=== PATIENT | female | born 1985 | race Caucasian/White ===

== ENCOUNTER 2017-01-05 07:37 | Day surgery (SDC) | payer BC ==
[2017-01-05] MEDS ORDERED: Sodium Chloride 0.9% 10 ML Syringe FLUSH PRN (07:45)
[2017-01-05] MEDS ORDERED: Lactated Ringers 1,000 ML IV SCH (07:45)
[2017-01-05] MEDS ORDERED: Propofol 200 MG/20 ML SDV IV ONE (09:30)
--- NOTE | 2017-01-05 10:39 | OR ---
DATE OF OPERATION: 01/05/2017 SURGEON: Drake Currie MD PROCEDURE PERFORMED: Colonoscopy with random forceps biopsies. PREOPERATIVE DIAGNOSIS: Diarrhea and abdominal pain. POSTOPERATIVE DIAGNOSIS: Normal scope. INDICATIONS FOR PROCEDURE: This is a 31-year-old white female, who was referred with the above-mentioned complaints. She was offered and accepted C scope. DESCRIPTION OF PROCEDURE: After an excellent, IV sedation was administered, digital rectal exam was performed. No marked abnormality was noted. The flexible colonoscope was inserted and advanced to the cecum without difficulty. The following findings were noted. Ascending colon, unremarkable. Random biopsies were taken. Transverse colon, unremarkable. Random biopsies were taken. Descending colon, unremarkable. Random biopsies were taken. Sigmoid and rectum unremarkable. Random biopsies were taken. Colon was deflated. Scope was removed. The patient tolerated the procedure well, and was taken to recovery in good condition. /[id number] /MODL
[2017-01-05 11:40] VITALS: BP 121/78
== END 2017-01-05 11:19 | disposition home or self-care (01) ==
LOC: FB.SDS 07:37
PROVIDERS: ATTEND Surgery
PROC: 0DBK8ZX Excision of Ascending Colon, Via Natural or Artificial Opening Endoscopic, Diagnostic (ICD-10-PCS; principal; 2017-01-05)
PROC: 0DBL8ZX Excision of Transverse Colon, Via Natural or Artificial Opening Endoscopic, Diagnostic (ICD-10-PCS; 2017-01-05)
DX: R10.9 Unspecified abdominal pain (principal); R19.7 Diarrhea, unspecified; K52.832 Lymphocytic colitis; Z32.02 Encounter for pregnancy test, result negative
CPT/HCPCS: 45380; 81025; J2704; J7120; 88305